=== PATIENT | male | born 2000 | race Caucasian/White ===

== ENCOUNTER 2021-10-11 11:04 | Emergency (ER) | payer OTHER ==
[2021-10-11] MEDS ORDERED: Ondansetron PF 4 MG/2 ML Vial ONE (11:48)
[2021-10-11] MEDS ORDERED: Boostrix 0.5 ML (Tdap) VIAL ONE (12:02)
[2021-10-11] MEDS ORDERED: Lidocaine 1% (PF) 30 ML VIAL ONE (12:40)
[2021-10-11] MEDS ORDERED: CEFAZOLIN 1 GM VIAL ONE (12:41)
[2021-10-11] MEDS ORDERED: Morphine 4 MG/ML VIAL ONE ×2 (13:15→13:16)
[2021-10-11] MEDS ORDERED: Bacitracin 1 PK ONE (15:22)
== END 2021-10-11 16:20 | disposition home or self-care (01) ==
LOC: CSHERS 11:04
DX: S62.631B Displaced fracture of distal phalanx of left index finger, initial encounter for open fracture (principal); S62.621B Displaced fracture of middle phalanx of left index finger, initial encounter for open fracture; E78.00 Pure hypercholesterolemia, unspecified; E78.5 Hyperlipidemia, unspecified; X58.XXXA Exposure to other specified factors, initial encounter
CPT/HCPCS: 12001; 90471; 90715; 96365; 96375; J0690; J2001; J2270; J2405